=== PATIENT | male | born 1970 | race Caucasian/White ===

== ENCOUNTER 2021-10-26 14:12 | Inpatient (IN) | payer BC, SELFPAY ==
[2021-10-26] VITALS (17 sets, daily range): BP systolic 114–149; BP diastolic 75–95; PULSE 55–76; RESP 16; TEMP 36.2–36.8; O2SAT 95–99; BMI 22.2; BMI 22.7
--- NOTE | 2021-10-26 14:25 | ED_ITS ---
HPI - Extremity Injury (Lower) General Time Seen by Provider: 14:35 Date Seen: 10/26/21 Chief Complaint: Extremity Pain/Injury, Lower Stated Complaint: Fall w/hip pain Time Seen by Provider: 10/26/21 14:13 Source: patient and family Mode of arrival: wheelchair Limitations: no limitations History of Present Illness HPI Narrative: Pleasant 51-year-old gentleman was at home where he fell off of chair, onto his right hip. He fell onto concrete. He is having pain in his right hip and right groin since this occurs. Trouble bearing weight on his right leg. And had to take wheelchair into the emergency room. They were able to drive him by private vehicle to the emergency department. Denies any back pain, denies any neck pain, there is no loss of conscious, or other injury he says. Denies any numbness tingling or weakness into his right lower extremity. Pre-existing problems with hip or back issues. Took some Tylenol at home, and unknown amount. MD complaint: hip injury Onset (ago): hour(s) (1) Injury: Right: hip and pelvis Type of Injury: blunt Place: home Severity: moderate Relieving factors: immobilization Exacerbating factors: weight bearing and movement Context: fall Associated symptoms: able to partially bear weight Other symptoms: none Treatments prior to arrival: other Related Data Home Medications Medication Instructions Recorded Confirmed No Known Home Medications 10/26/21 10/26/21 Allergies Allergy/AdvReac Type Severity Reaction Status Date / Time No Known Drug Allergies Allergy Verified 10/26/21 14:20 Review of Systems Status of ROS: Reports: 6 or more systems reviewed and unremarkable except as noted in History and below [facility] Social History Smoking Status: Current every day smoker What tobacco products do you use: cigarettes Do you use any of these nicotine containing products: None Second hand tobacco smoke exposure: No How often do you have a drink containing alcohol: 4 or more times a week How often do you have six or more drinks on one occasion: Less than monthly AUDIT-C Alcohol total score: 5 Non-prescribed substance use: denies use service: No Exam Const: Vital Signs, click to edit/add: Vital Signs - 24 hr 10/26/21 14:21 Temperature 97.1 F L Pulse Rate [Pulse Oximeter] 71 Respiratory Rate 16 Blood Pressure [Ri ght Upper Arm] 149/90 H Pulse Oximetry 98 Oxygen Delivery Me thod Room Air Documenting provider has reviewed patient's vital signs: yes Common normals: no apparent distress, average body habitus, oriented x3, no limitations, healthy appearing, alert and well nourished General appearance: cooperative and comfortable Orientation/consciousness: Yes awake Other: Laying actually sitting in rney in room 5, absolutely no pain, symmetrical legs bilaterally with no rotational deformity. HENMT: Common normals: normocephalic, head/scalp atraumatic, hearing grossly normal bilaterally, external ears normal, EAC's normal, TM's normal bilaterally, external nose normal, nasal mucous membranes and turbinates normal, moist oral mucous membranes, oropharynx normal, dentition normal and gingiva normal Head and scalp: normocephalic and atraumatic Nose: external nose normal and nasal mucous membranes and turbinates normal External ear: external ears normal External auditory canal: EAC's normal Tympanic membrane: TM's normal bilaterally Eye: Common normals: PERRL, EOMs intact bilaterally, conjunctivae normal and no scleral icterus Conjunctiva: conjunctiva(e) normal Pupil: PERRL Neck & C-Spine: Common normals: full ROM, no lymphadenopathy, supple, no meningeal signs and no JVD Resp: Common normals: normal respiratory effort, no retractions, no use of accessory muscles, clear to auscultation bilaterally and percussion normal Auscultation: clear to auscultation bilaterally Percussion: percussion normal Cardio: Common normals: no JVD, regular rate, regular rhythm, S1 normal heart sound, S2 normal heart sound, no gallops, no clicks, no murmurs, no rub and peripheral pulses 2+ throughout Rate: regular rate Rhythm: regular rhythm Heart sounds: S1 normal and S2 normal Peripheral pulses: pulses 2+ throughout GI: Common normals: Normal to inspection, nondistended, normoactive bowel sounds present, soft to palpation, non-tender, no hepatosplenomegaly, no masses and no bruits Palpation: soft and no hepatosplenomegaly : Common normals: no CVA tenderness, external exam normal, testes normal, scrotum normal, no scrotal swelling and no hernias present Bladder/kidney exam: no CVA tenderness Back & Pelvis: Common normals: no CVA tenderness, thoracic and lumbar spine normal to inspection, no thoracic nor lumbar tenderness and thoraco-lumbar ROM normal Other: Right lower extremity however with hip flexion reproduces his discomfort into his right groin. And right hip. Normal pulses in the right lower extremity, no edema, normal muscle bulk, Extremity: Other: Scrape over the right elbow of note, but full range of motion of his right elbow in extension, flexion, supination pronation. Good case consultant strength of his right hand noted also. Neuro: Common normals: oriented x3, CN's II-XII intact bilaterally, moves all extremities, no focal motor deficits, no sensory deficits noted, deep tendon reflexes 2+ bilaterally and gait normal Sensorium/orientation: awake and alert Meningeal signs: no meningeal signs Course Reevaluation(s) Reevaluation #1: I discussed with the patient he has a right hip fracture, and will need surgery. I spoke to the hospitalist, Dr. Sifuentes who accepted the patient, for admission, I then spoke to the orthopedic physician executive assistant to president on-call Sho on- call for , we will admit the patient to hospital for further care. Dilaudid will be added for pain control. He really does not have any pain at all, at rest, for non moving him, I do not think at the present time he needs fa scia iliaca block. Vital Signs Vital signs: Initial Vital Signs Temperature 97.1 F L 10/26/21 14:21 Temperature Source Temporal Artery Scan 10/26/21 14:21 Pulse Rate 71 10/26/21 14:21 Respiratory Rate 16 10/26/21 14:21 Blood Pressure 149/90 H 10/26/21 14:21 Blood Pressure Mean 109 10/26/21 14:21 Blood Pressure Position Sitting 10/26/21 14:21 Pulse Oximetry 98 10/26/21 14:21 Oxygen Delivery Method 10/26/21 14:21 Vital Signs Temperature 97.1 F L 10/26/21 14:21 Pulse Rate 71 10/26/21 14:21 Respiratory Rate 16 10/26/21 14:21 Blood Pressure 149/90 H 10/26/21 14:21 Pulse Oximetry 98 10/26/21 14:21 Oxygen Delivery Method 10/26/21 14:21 Temperature 97.1 F L 10/26/21 14:21 Pulse Rate 71 10/26/21 14:21 Respiratory Rate 16 10/26/21 14:21 Blood Pressure 149/90 H 10/26/21 14:21 Pulse Oximetry 98 10/26/21 14:21 Oxygen Delivery Method 10/26/21 14:21 MDM - Extremity Injury (Lower) MDM Narrative Medical decision making narrative: Patient is seen and assessed, consideration for right hip fracture, pelvic fracture, hernia, back injury within without fracture, sciatica, femur fracture. Differential Diagnosis Differential diagnosis: Likely fracture of femur and fracture of hip Medical Records Attestation: I reviewed the patient's medical records. Lab Data Attestation: I reviewed the patient's lab results. Imaging Data rhip: Attestation: I have reviewed the pertinent imaging results. My impression: Right hip intratrochanteric fracture, with no angulation or displacement. ECG Data Attestation: I personally reviewed and interpreted this ECG as follows: ECG interpretation date: 10/26/21 ECG interpretation time: 15:16 Prior ECG tracings: not available for review Interpretation: EKG normal sinus rhythm with a ventricular rate of 67 there is an incomplete right bundle-branch block with no acute ST wave changes otherwise normal EKG. Discharge Plan Discharge Clinical Impression: Contusion of elbow, right, Abrasion of elbow, right, Closed fracture of right hip Patient Disposition: Admitted As Inpatient Condition: Stable Prescriptions: No Action No Known Home Medications Follow Up/Referrals: Provider,Not a Local [Primary Care Provider] -
--- NOTE | 2021-10-26 14:34 | CRLHL7_ITS ---
For Patients: As a result of the Cures Act, medical imaging exams and procedure reports are released immediately into your electronic medical record. You may view this report before your referring provider. If you have questions, please contact your health care provider. Indication: Fall Technique: AP pelvis and right hip views Comparison: No comparison Findings: Nondisplaced right intertrochanteric fracture. No dislocation or additional fractures are seen. Dictated by Marli Blake MD @ 10/26/2021 3:15:42 PM (Electronically Signed)
[2021-10-26] MEDS: HYDROmorphone 0.5 mg/0.5 ml inj IVP ×4 (15:15→22:36)
--- NOTE | 2021-10-26 15:15 | ED.NURSE ---
No pain if resting still, pain while in imaging for scans 12/09. Dilaudid per order - see eMAR.
[2021-10-26 15:39] LABS: Basophils Percent Auto 0.2 % (0.0-3.0); Eosinophils Percent Auto 0.2 % (0.0-7.0); Hematocrit 48.2 % (37.0-53.0); Hemoglobin* 15.7 gm/dL (13.5-17.5); Immature Granulocytes Abs Auto 0.11 K/uL (0.00-0.30); Lymphocytes Percent Auto 13.5 % (20-44); Mean Corpuscular HGB Conc 33 gm/dL (32-36); Mean Corpuscular Hemoglobin 29 pg (26-34); Mean Corpuscular Volume 88 fL (80-100); Monocytes Percent Auto 6.6 % (0.0-11.0); Neutrophils Percent Auto 78.7 % (42.0-72.0); Platelet Count* 205 K/uL (140-440); White Blood Count* 14.64 K/uL (4.50-11.00)
[2021-10-26 15:59] LABS: Slide Review Reflex No
--- NOTE | 2021-10-26 16:00 | ED.NURSE ---
Abrasion to right elbow cleansed by EDT with hibiclens solution, dressed with bacitracin and bandaid.
[2021-10-26 16:01] LABS: Chloride* 105 mmol/L (96-114); Potassium* 4.3 mmol/L (3.6-5.1); Sodium* 137 mmol/L (135-149)
[2021-10-26 16:04] LABS: Blood Urea Nitrogen* 15 mg/dL (7-30); Carbon Dioxide* 28 mmol/L (20-32); Creatinine* 0.9 mg/dL (0.5-1.5); Est. Creatinine Clearance* 104.66; Estimated Glomerular Filt Rate 103 ml/min
[2021-10-26 16:05] LABS: Glucose* 106 mg/dL (60-115)
[2021-10-26 16:07] LABS: PCR FLU A Negative PCR FLU A (Negative); PCR FLU B Negative PCR FLU B (Negative); PCR RSV Negative PCR RSV (Negative)
[2021-10-26 16:10] LABS: Ethanol* < 0.01 % (0.01-0.03); SARS PCR* Negative SARS-CoV-2 (Negative)
[2021-10-26 16:31] LABS: INR 1.22 (0.91-1.10); Partial Thromboplastin Time* 30 Seconds (23-33); Prothrombin Time 15.8 Seconds
[2021-10-26] MEDS: KETOROLAC 30 MG/ML inj IVP (17:09)
--- NOTE | 2021-10-26 17:47 | P.IMHP_ITS ---
Hospitalist- H&P: HPI History of Present Illness Date Seen: 10/26/21 Chief complaint: Fall w/hip pain Narrative: ADMISSION HISTORY AND PHYSICAL - HOSPITALIST Chief Complaint: Fall, right hip pain HPI: 51-year-old with a history of tobacco dependence but otherwise no significant medical history presents after a fall at home. Patient states that about noon today he was climbing on a stool in his garage and inadvertently fell on his right hip on the concrete floor. He did not hit his head. He did not lose consciousness. He scraped his right elbow as well. Was not able to stand without assistance. He did limp once his significant other helped him up. She went got crutches and he was able to move into the house. She brought him into the emergency room for further evaluation. He was not currently drinking or using any drugs. In the ED a nondisplaced right intertrochanteric fracture was noted. No dislocation or additional fractures are seen. His preop clearance was begun. Ortho accepted consultation and is planning an ORIF in the morning. Hospitalist service was contacted to admit. 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 No dislocation or additional fractures are seen. EKG Normal sinus, incomplete right bundle branch block, rate 67 REVIEW OF SYSTEMS: 12-point ROS completed with patient and negative unless otherwise stated in HPI or below. PHYSICAL EXAM: CODE STATUS: FULL CODE CONSTITUTIONAL: Conversive, good historian. A/O. Knows setting and context. VITAL SIGNS: see record. HEENT: Normocephalic, atraumatic. PERRL, EOMI, conjunctivae pink, no scleral icterus. Ears and nose externally normal. Pharynx normal. NECK: No JVD. No carotid bruit, no thyromegaly, no adenopathy. CHEST: Clear to auscultation bilaterally HEART: S1 and S2 normal. No harsh murmurs. Edema MUSCULOSKELETAL: Right lower extremity No obvious shortening or rotation. Good distal pulses. NEURO: Cranial nerves intact. Grossly intact. No asymmetric findings. SKIN: No rashes, petechiae, concerning changes PSYCHIATRIC: Euthymic. ADMIT DVT: SCDs to the left GI: PO intake Time spent: 70 minutes examining patient, conferring with family and patient, care staff, developing care plan [facility] Medical History (Updated 10/26/21 @ 18:12 by Samara Sifuentes MD) Tobacco dependence Surgical History (Updated 10/26/21 @ 18:12 by Samara Sifuentes MD) H/O toe surgery Social History Highest level of school completed/degree received: some college, no degree Smoking Status: Current every day smoker What tobacco products do you use: cigarettes Smoking packs per day: 0.5 Smoking cigarettes per day: 10.0 Years smoked: 40 Smoking pack-years: 20.00 Do you use any of these nicotine containing products: None Second hand tobacco smoke exposure: No How often do you have a drink containing alcohol: 4 or more times a week Alcohol type: beer and hard liquor 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 How many standard drinks containing alcohol do you have on a typical day: 3 or 4 How often do you have six or more drinks on one occasion: Less than monthly AUDIT-C Alcohol total score: 6 Non-prescribed substance use: denies use Caffeine: Yes (2 cups/day) service: No Meds Home Medications and Allergies Home Medications Medication Instructions Recorded Confirmed Type No Known Home Medications 10/26/21 10/26/21 History Allergies Allergy/AdvReac Type Severity Reaction Status Date / Time No Known Drug Allergies Allergy Verified 10/26/21 14:20 Exam Const: Vital Signs, click to edit/add: Vital Signs - 24 hr 10/26/21 14:21 10/26/21 15:00 10/26/21 14:22 Temperature 97.1 F L Pulse Rate 69 Pulse Rate [Pulse Oximeter] 71 Pulse Rate [Right] 71 Respiratory Rate 16 Blood Pressure 149/90 H Blood Pressure [Ri ght Arm] Blood Pressure [Ri ght Upper Arm] 149/90 H Pulse Oximetry 98 97 Oxygen Delivery Me thod Room Air 10/26/21 14:23 10/26/21 14:32 10/26/21 14:33 Temperature Pulse Rate 70 75 67 Pulse Rate [Pulse Oximeter] Pulse Rate [Right] Respiratory Rate Blood Pressure 120/88 Blood Pressure [Ri ght Arm] Blood Pressure [Ri ght Upper Arm] Pulse Oximetry 99 99 98 Oxygen Delivery Me thod 10/26/21 15:17 10/26/21 15:18 10/26/21 15:30 Temperature Pulse Rate 76 69 65 Pulse Rate [Pulse Oximeter] Pulse Rate [Right] Respiratory Rate Blood Pressure 122/81 Blood Pressure [Ri ght Arm] Blood Pressure [Ri ght Upper Arm] Pulse Oximetry 96 97 96 Oxygen Delivery Me thod 10/26/21 15:32 10/26/21 16:00 10/26/21 16:02 Temperature Pulse Rate 68 68 63 Pulse Rate [Pulse Oximeter] Pulse Rate [Right] Respiratory Rate Blood Pressure 114/75 124/82 Blood Pressure [Ri ght Arm] Blood Pressure [Ri ght Upper Arm] Pulse Oximetry 95 97 95 Oxygen Delivery Me thod 10/26/21 16:34 Temperature 98.2 F Pulse Rate Pulse Rate [Pulse Oximeter] Pulse Rate [Right] 65 Respiratory Rate 16 Blood Pressure Blood Pressure [Ri ght Arm] 142/93 H Blood Pressure [Ri ght Upper Arm] Pulse Oximetry 97 Oxygen Delivery Me thod Room Air Hospitalist - H&P: Result Labs Labs: Short CBC 10/26/21 Range/Units 15:15 WBC 14.64 H (4.50-11.00) K/uL Hgb 15.7 (13.5-17.5) gm/dL Hct 48.2 (37.0-53.0) % Plt Count 205 (140-440) K/uL BMP 10/26/21 15:15 Sodium 137 Potassium 4.3 Chloride 105 Carbon Dioxide 28 BUN 15 Creatinine 0.9 Glucose 106 Calcium 9.0 Assessment and Plan Assessment and plan (1) Closed fracture of right hip: Status: Acute Assessment and Plan: EKG shows incomplete right bundle branch block. Chest x-ray pending. Labs reviewed. My only concern, but this will not hold up surgery is his elevated INR at 1.22. See below. Plan for for ORIF in the morning. NPO after midnight. Pain management. Follow INR and anticoagulate after surgery (2) Abrasion of elbow, right: Status: Acute Assessment and Plan: Dressed in the ED (3) Tobacco dependence: Status: Acute Assessment and Plan: Patient declines nicotine replacement (4) Elevated INR: Status: Acute Assessment and Plan: 1.22. No history of aspirin or other anticoagulant use. Patient is a social drinker. I am checking LFTs, GGT and repeating an INR later tonight. Less than 1.3 okay for surgery.
--- NOTE | 2021-10-26 18:12 | CRLHL7_ITS ---
For Patients: As a result of the Cures Act, medical imaging exams and procedure reports are released immediately into your electronic medical record. You may view this report before your referring provider. If you have questions, please contact your health care provider. INDICATION: Trauma, hip fracture. TECHNIQUE: Single AP view COMPARISON: None available FINDINGS: The cardiomediastinal contours are within normal limits. No suspicious focal or diffuse pulmonary opacities. No definite pneumothorax or pleural effusion. No aggressive appearing osseous lesion. IMPRESSION: No acute pulmonary process. Dictated by Luis Marx MD @ 10/26/2021 6:58:33 PM (Electronically Signed)
[2021-10-26 18:35] LABS: Albumin* 3.9 g/dL (3.3-5.0)
[2021-10-26 18:38] LABS: Alanine Aminotransferase* 16 U/L (4-50); Alkaline Phosphatase* 50 U/L (40-150); Aspartate Amino Transferase* 16 U/L (12-35); Bilirubin Direct* 0.3 mg/dL (0.0-0.5); Bilirubin Total* 0.6 mg/dL (0.1-1.5); Gamma Glutamyl Transpeptidase* 22 U/L (8-55)
[2021-10-26] MEDS: OXYCODONE 5 MG TABLET PO (20:03)
[2021-10-26] MEDS: ACETAMINOPHEN 325 MG TABLET PO (20:04)
--- NOTE | 2021-10-26 20:04 | PC.NURSE ---
pt up to m/s floor at 1619 with fx R hip from fall off stool. Bedrest. Surgery tomorrow. NPO at midnight. Tolerated regular diet this evening. Dilaudid and toradol for pain. A/Ox3. Pleasant and cooperative.
[2021-10-26 20:22] LABS: Prothrombin Time 15.6 Seconds
[2021-10-27] VITALS (25 sets, daily range): BP systolic 93–142; BP diastolic 61–97; PULSE 48–75; RESP 12–16; TEMP 35.7–36.8; O2SAT 93–100
[2021-10-27] MEDS: OXYCODONE 5 MG TABLET PO ×4 (02:04→23:21)
[2021-10-27] MEDS: ACETAMINOPHEN 325 MG TABLET PO (02:05)
[2021-10-27] MEDS: HYDROmorphone 0.5 mg/0.5 ml inj IVP ×4 (02:21→19:07)
--- NOTE | 2021-10-27 05:47 | PC.NURSE ---
[id number] Pt resting comfortably in bed, 0/10 pain when not moving, 10/10 pain with any slight movement, prn pain medications given with some relief. NPO since midnight, no iv fluids started, called Levon requesting fluids and no new orders given since surgery was scheduled for 0700. pedal pulses present, declined ice to site. denies N/V.
[2021-10-27 06:25] LABS: INR 1.23 (0.91-1.10)
[2021-10-27] MEDS: LACTATED RINGERS 1000 ML IV (06:53)
--- NOTE | 2021-10-27 07:00 | CRLHL7_ITS ---
For Patients: As a result of the Century Cures Act, medical imaging exams and procedure reports are released immediately into your electronic medical record. You may view this report before your referring provider. If you have questions, please contact your health care provider. INDICATION: Surgical intervention. TECHNIQUE: Fluoroscopic support provided for surgical intervention; 56 seconds of fluoroscopy time utilized with 2 images archived. IMPRESSION: Fluoroscopic support for right femoral intramedullary nail fixation. Please see procedural note for further details. Dictated by Giuseppe Blunt MD @ 10/28/2021 7:22:31 AM (Electronically Signed)
--- NOTE | 2021-10-27 07:02 | P.ORCN_ITS ---
History of Present Illness HPI Date Seen: 10/27/21 Requesting physician: Samara Sifuentes Chief complaint: Fall w/hip pain Narrative: Carlos is a 51-year-old, community ambulator who fell approximately 4 ft landing on a concrete floor, onto his right hip. He had immediate hip pain and was unable to bear weight. He was diagnosed by Dr. Lobo with an intertrochanteric fracture. He has been medically cleared for surgery. He has never injured this hip or had surgery previously. He does not have diabetes, he smokes 1/2 pack of cigarettes per day, he is not on blood thinners. The patient denies: Fever, night sweats, shaking chills, nausea, vomiting, diar noemy, chest pain, chest pressure, shortness of breath, no rash, no change in hearing or vision, no issues with bleeding or clotting [facility] Medical History Tobacco dependence Surgical History H/O toe surgery Social History Highest level of school completed/degree received: some college, no degree Smoking Status: Current every day smoker What tobacco products do you use: cigarettes Smoking packs per day: 0.5 Smoking cigarettes per day: 10.0 Years smoked: 40 Smoking pack-years: 20.00 Do you use any of these nicotine containing products: None Second hand tobacco smoke exposure: No How often do you have a drink containing alcohol: 4 or more times a week Alcohol type: beer and hard liquor 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 How many standard drinks containing alcohol do you have on a typical day: 3 or 4 How often do you have six or more drinks on one occasion: Less than monthly AUDIT-C Alcohol total score: 6 Non-prescribed substance use: denies use Caffeine: Yes (2 cups/day) service: No Meds Home Medications and Allergies Home Medications Medication Instructions Recorded Confirmed Type No Known Home Medications 10/26/21 10/26/21 History Allergies Allergy/AdvReac Type Severity Reaction Status Date / Time No Known Drug Allergies Allergy Verified 10/26/21 14:20 Ortho Exam Narrative Exam Narrative: The patient is alert and oriented x3, in no acute distress, they are able to converse in a normal speaking voice without obvious hearing loss and with nonlabored breathing. The skin about the right hip is intact, without surgical scars, no ecchymosis. CMS to the foot is normal. Const Vital Signs, click to edit/add: Vital Signs - 24 hr 10/26/21 14:21 10/26/21 15:00 10/26/21 14:22 Temperature 97.1 F L Pulse Rate 69 Pulse Rate [Pulse Oximeter] 71 Pulse Rate [Right Pulse Oximeter] Pulse Rate [Right] 71 Respiratory Rate 16 Blood Pressure 149/90 H Blood Pressure [Right Arm] Blood Pressure [Right Upper Arm] 149/90 H Pulse Oximetry 98 97 Oxygen Delivery Method Room Air 10/26/21 14:23 10/26/21 14:32 10/26/21 14:33 Temperature Pulse Rate 70 75 67 Pulse Rate [Pulse Oximeter] Pulse Rate [Right Pulse Oximeter] Pulse Rate [Right] Respiratory Rate Blood Pressure 120/88 Blood Pressure [Right Arm] Blood Pressure [Right Upper Arm] Pulse Oximetry 99 99 98 Oxygen Delivery Method 10/26/21 15:17 10/26/21 15:18 10/26/21 15:30 Temperature Pulse Rate 76 69 65 Pulse Rate [Pulse Oximeter] Pulse Rate [Right Pulse Oximeter] Pulse Rate [Right] Respiratory Rate Blood Pressure 122/81 Blood Pressure [Right Arm] Blood Pressure [Right Upper Arm] Pulse Oximetry 96 97 96 Oxygen Delivery Method 10/26/21 15:32 10/26/21 16:00 10/26/21 16:02 Temperature Pulse Rate 68 68 63 Pulse Rate [Pulse Oximeter] Pulse Rate [Right Pulse Oximeter] Pulse Rate [Right] Respiratory Rate Blood Pressure 114/75 124/82 Blood Pressure [Right Arm] Blood Pressure [Right Upper Arm] Pulse Oximetry 95 97 95 Oxygen Delivery Method 10/26/21 16:34 10/26/21 17:55 10/26/21 20:05 Temperature 98.2 F 98.3 F Pulse Rate 63 Pulse Rate [Pulse Oximeter] Pulse Rate [Right Pulse Oximeter] 67 Pulse Rate [Right] 65 Respiratory Rate 16 16 Blood Pressure Blood Pressure [Right Arm] 142/93 H 146/90 H Blood Pressure [Right Upper Arm] Pulse Oximetry 97 98 Oxygen Delivery Method Room Air Room Air 10/26/21 23:00 10/26/21 23:00 10/26/21 23:10 Temperature 97.8 F Pulse Rate 58 L Pulse Rate [Pulse Oximeter] Pulse Rate [Right Pulse Oximeter] 55 L Pulse Rate [Right] Respiratory Rate 16 16 Blood Pressure Blood Pressure [Right Arm] 132/95 H Blood Pressure [Right Upper Arm] Pulse Oximetry 97 Oxygen Delivery Method Room Air 10/27/21 03:14 10/27/21 06:38 10/27/21 06:40 Temperature 97.8 F Pulse Rate 60 63 Pulse Rate [Pulse Oximeter] Pulse Rate [Right Pulse Oximeter] 67 Pulse Rate [Right] Respiratory Rate 12 12 12 Blood Pressure 126/85 140/94 H Blood Pressure [Right Arm] 119/76 Blood Pressure [Right Upper Arm] Pulse Oximetry 97 95 95 Oxygen Delivery Method Room Air Room Air Room Air 10/27/21 06:50 Temperature Pulse Rate 75 Pulse Rate [Pulse Oximeter] Pulse Rate [Right Pulse Oximeter] Pulse Rate [Right] Respiratory Rate 12 Blood Pressure 123/93 H Blood Pressure [Right Arm] Blood Pressure [Right Upper Arm] Pulse Oximetry 96 Oxygen Delivery Method Room Air Results Labs Labs: Laboratory Results - last 48 hr 10/26/21 10/26/21 10/26/21 15:15 15:15 15:15 WBC 14.64 H RBC 5.50 Hgb 15.7 Hct 48.2 MCV 88 MCH 29 MCHC 33 RDW Coeff of Shaw 13.0 Plt Count 205 Neut % (Auto) 78.7 H Lymph % (Auto) 13.5 L [place] % (Auto) 6.6 Eos % (Auto) 0.2 Baso % (Auto) 0.2 Neut # (Auto) 11.50 H Lymph # (Auto) 2.00 [place] # (Auto) 1.00 H Eos # (Auto) 0.00 Baso # (Auto) 0.00 Abs Immat Gran (auto) 0.11 INR 1.22 H APTT 30 Sodium 137 Potassium 4.3 Chloride 105 Carbon Dioxide 28 BUN 15 Creatinine 0.9 Estimated Creat Clear 104.66 Estimated GFR 103 Glucose 106 Calcium 9.0 Total Bilirubin 0.6 Direct Bilirubin 0.3 GGT 22 AST 16 ALT 16 Alkaline Phosphatase 50 Total Protein 7.0 Albumin 3.9 Ethyl Alcohol < 0.01 L SARS-CoV-2 (PCR) Influenza Type A (PCR) Influenza Type B (PCR) RSV (PCR) 10/26/21 10/26/21 10/27/21 15:15 19:47 05:58 WBC RBC Hgb Hct MCV MCH MCHC RDW Coeff of Shaw Plt Count Neut % (Auto) Lymph % (Auto) [place] % (Auto) Eos % (Auto) Baso % (Auto) Neut # (Auto) Lymph # (Auto) [place] # (Auto) Eos # (Auto) Baso # (Auto) Abs Immat Gran (auto) INR 1.20 H 1.23 H APTT Sodium Potassium Chloride Carbon Dioxide BUN Creatinine Estimated Creat Clear Estimated GFR Glucose Calcium Total Bilirubin Direct Bilirubin GGT AST ALT Alkaline Phosphatase Total Protein Albumin Ethyl Alcohol SARS-CoV-2 (PCR) Negative SARS-CoV-2 Influenza Type A (PCR) Negative PCR FLU A Influenza Type B (PCR) Negative PCR FLU B RSV (PCR) Negative PCR RSV Diagnostic results Additional Comments: An AP pelvis, AP and cross-table lateral view of the right hip show a nondisplaced, 2 part intertrochanteric fracture. There is no pre-existing hip joint arthritis. There is no obvious pathologic lesion. Assessment and Plan Assessment and plan (1) Closed fracture of right hip: Status: Acute Total time spent: Total time spent is greater than 50% in coordination of care (as documented) at patient's floor/unit and/or counseling patient: (2) Abrasion of elbow, right: Status: Acute Total time spent: Total time spent is greater than 50% in coordination of care (as documented) at patient's floor/unit and/or counseling patient: (3) Tobacco dependence: Status: Acute Total time spent: Total time spent is greater than 50% in coordination of care (as documented) at patient's floor/unit and/or counseling patient: (4) Elevated INR: Status: Acute Total time spent: Total time spent is greater than 50% in coordination of care (as documented) at patient's floor/unit and/or counseling patient: Plan Right lower extremity Nondisplaced 2 part intertrochanteric fracture I told Carlos that his injury is best treated with an intramedullary nail. He has been medically cleared for surgery, therefore we will plan to take him to the operating room now.
[2021-10-27] MEDS: CEFAZOLIN 2 GM in 0.9 % SODIUM CHLORIDE Mini-bag 100 ML IVPB ×3 (07:10→21:49)
--- NOTE | 2021-10-27 07:26 | P.NB_ITS ---
Nerve Block Nerve Block Time Seen by Provider: 06:42 Date Seen: 10/27/21 Type of block requested by surgeon for post-operative analgesia: PRASANTH/LFCN Side: right Time out performed: Yes Verification of patient name: Yes Verification of date of : Yes Site marking: site marked Name of person performing procedure: Pramod Earl CRNA Continuous monitoring Was continuous monitoring of O2 sat, B/P, residential assistant, recorded every 15 minutes?: Yes Procedure Checklist: sterile prep, needles and gloves Ultrasound guided. Images saved: Yes Medications given in 5ml increments after negative aspiration: Ropivicaine Decadron (mg): 10 Precedex (mcg): 25 Patient tolerated procedure well: Yes Block Charges Block Charge (with Pro Fee): Other Periph Nerve Block Use of Ultrasound Machine for Block: Yes- US Guidance/pain block
--- NOTE | 2021-10-27 07:37 | SUR.OPER ---
TIME OUT PERFORMED PRIOR TO PRASANTH BLOCK ON THE RIGHT HIP AT 06:45. PATIENT QUESTIONS ANSWERED SATISFACTORILY PREOPERATIVELY.? PATIENT BROUGHT TO OR #2 PER MED/SURG BED.? Patient positioned supine on OR #2 bed.?The perioperative?team supported arms bilaterally on arm boards.? Final approval of positioning by surgeon.?
--- NOTE | 2021-10-27 08:07 | P.ORPRC_ITS ---
Procedure Note Date of procedure: 10/27/21 Procedure: SURGEON: Tom Styles MD PROCESS CONTROLS TECHNICIAN: Emily Conte PA-C PREOPERATIVE DIAGNOSIS: Right hip 2 part intertrochanteric fracture POSTOPERATIVE DIAGNOSIS: Right hip 2 part intertrochanteric fracture NAME OF OPERATION: Right hip fracture ORIF IMPLANTS: Synthes intramedullary hip screw 11 mm x 170 mm with a 110 mm lag screw and a 36 mm distal interlocking screw ANESTHESIA: Spinal ESTIMATED BLOOD LOSS: 10 mL COMPLICATIONS: None SPECIMENS: None DRAINS: None PREOPERATIVE ANTIBIOTICS: Ancef 2 gram INDICATIONS: The patient is a 51-year-old male who fell yesterday sustaining a to part intertrochanteric fracture of the right hip. They were admitted for workup and care. They have been medically cleared for surgery. The risks, benefits and expected outcomes were discussed in detail. These included but were not limited to: Infection, bleeding, injury to blood vessel or nerve, venous thromboembolism. All questions were answered to their satisfaction. Use of an child care assistant was necessary for patient positioning and safety, soft t issue retraction and closure, dressing application, and transfer of the patient to and from the hospital bed to the fracture table. PROCEDURE: Spinal anesthesia was administered. The patient was placed supine on the fracture table. The right lower extremity was prepped and draped in the usual sterile fashion. The limb was placed in longitudinal traction. Our provisional reduction was confirmed with the C-arm. The guide pin was placed percutaneously to the tip of the greater trochanter. It was advanced into the canal. Its placement was confirmed with the image intensifier in both AP and lateral views. We then made a stab incision around the guide pin. The soft tissue sleeve was advanced to the tip of the trochanter. The opening Reamer was used. We made an incision over the flare of the greater trochanter. Dissection was carried with the Christian elevator to the lateral cortex. A bone hook was placed over the calcar to obtain an anatomic reduction. The intramedullary nail was placed. We held the fracture reduced with the bone hook and the guide pin was taken to the subchondral bone of the femoral head on both the AP and lateral views. It was placed in the posterior, inferior aspect of the head. The drill and the tap were used. We placed the 110 mm lag screw. We removed the bone hook. Our reduction remains anatomic. Traction was released. The lag screw was set to dynamic mode. That is it was not locked. We placed a 36 mm distal interlocking screw. This construct was imaged in the AP and lateral views and was felt to be well placed with an anatomic reduction. The wounds were irrigated with normal saline. They were closed with Vicryl deep and Monocryl in the skin. A dry dressing was applied. Sponge and needle counts were correct x2. The patient tolerated the procedure well. There were no apparent complications. They were carefully transferred to the hospital bed and taken to the postanesthesia care unit in satisfactory condition. PLAN: The patient will be mobilized with physical therapy. They may weightbear as tolerates on the right lower extremity. Aspirin will be used for DVT prophylaxis. They will be discharged to a skilled nursing once medically appropriate.
[2021-10-27] MEDS: LACTATED RINGERS 1000 ML 1,000 ML 75 ML IV ×2 (08:30→10:36)
--- NOTE | 2021-10-27 08:36 | W.ANESCHARGE ---
Anesthesia Charges Start Date/Time Anesthesia Start Date: 10/27/21 Anesthesia Start Time: 06:53 Stop Date/Time Anesthesia Stop Date: 10/27/21 Anesthesia Stop Time: 09:00 Summary Emergency: Yes
--- NOTE | 2021-10-27 10:30 | PM.IMPN1 ---
Progress Note: A&P Assessment and plan (1) Closed fracture of right hip: Status: Acute (2) Abrasion of elbow, right: Status: Acute (3) Tobacco dependence: Status: Acute Plan Plan 1. S/p Right ORIF on 10/27 under spinal anesthesia, EBL 10cc -pain control, diet, dvt ppx per surgery service -Therapy evaluation -bmp and hemoglobin in AM 2. hx of tobacco use disorder; cessation counseling prior to DC 3. Hx of alcohol dependence; monitor for s/s of withdrawal Time Spent With Patient Total time spent: 20 Subjective Date Seen: 10/27/21 Interval history: Patient is doing well following surgery He denies chest pain and sob denies nausea and vomiting post operative pain is controlled Exam Narrative: Exam Narrative: Gen: no acute distress HEENT: NCAT EOMI MMM CV: RRR normal s1 s2 Lungs: CTAB Abd: Soft, nt, nd Neuro: AOX3 moves extremities Const: Vital Signs, click to edit/add: Vital Signs - 24 hr 10/26/21 14:21 10/26/21 15:00 10/26/21 14:22 Temperature 97.1 F L Pulse Rate 69 Pulse Rate [Pulse Oximeter] 71 Pulse Rate [Right Dorsalis Pedis] Pulse Rate [Right Pulse Oximeter] Pulse Rate [Right] 71 Respiratory Rate 16 Blood Pressure 149/90 H Blood Pressure [Ri ght Arm] Blood Pressure [Ri ght Upper Arm] 149/90 H Pulse Oximetry 98 97 Oxygen Delivery Me thod Room Air Oxygen Flow Rate 10/26/21 14:23 10/26/21 14:32 10/26/21 14:33 Temperature Pulse Rate 70 75 67 Pulse Rate [Pulse Oximeter] Pulse Rate [Right Dorsalis Pedis] Pulse Rate [Right Pulse Oximeter] Pulse Rate [Right] Respiratory Rate Blood Pressure 120/88 Blood Pressure [Ri ght Arm] Blood Pressure [Ri ght Upper Arm] Pulse Oximetry 99 99 98 Oxygen Delivery Me thod Oxygen Flow Rate 10/26/21 15:17 10/26/21 15:18 10/26/21 15:30 Temperature Pulse Rate 76 69 65 Pulse Rate [Pulse Oximeter] Pulse Rate [Right Dorsalis Pedis] Pulse Rate [Right Pulse Oximeter] Pulse Rate [Right] Respiratory Rate Blood Pressure 122/81 Blood Pressure [Ri ght Arm] Blood Pressure [Ri ght Upper Arm] Pulse Oximetry 96 97 96 Oxygen Delivery Me thod Oxygen Flow Rate 10/26/21 15:32 10/26/21 16:00 10/26/21 16:02 Temperature Pulse Rate 68 68 63 Pulse Rate [Pulse Oximeter] Pulse Rate [Right Dorsalis Pedis] Pulse Rate [Right Pulse Oximeter] Pulse Rate [Right] Respiratory Rate Blood Pressure 114/75 124/82 Blood Pressure [Ri ght Arm] Blood Pressure [Ri ght Upper Arm] Pulse Oximetry 95 97 95 Oxygen Delivery Me thod Oxygen Flow Rate 10/26/21 16:34 10/26/21 17:55 10/26/21 20:05 Temperature 98.2 F 98.3 F Pulse Rate 63 Pulse Rate [Pulse Oximeter] Pulse Rate [Right Dorsalis Pedis] Pulse Rate [Right Pulse Oximeter] 67 Pulse Rate [Right] 65 Respiratory Rate 16 16 Blood Pressure Blood Pressure [Ri ght Arm] 142/93 H 146/90 H Blood Pressure [Ri ght Upper Arm] Pulse Oximetry 97 98 Oxygen Delivery Me thod Room Air Room Air Oxygen Flow Rate 10/26/21 23:00 10/26/21 23:00 10/26/21 23:10 Temperature 97.8 F Pulse Rate 58 L Pulse Rate [Pulse Oximeter] Pulse Rate [Right Dorsalis Pedis] Pulse Rate [Right Pulse Oximeter] 55 L Pulse Rate [Right] Respiratory Rate 16 16 Blood Pressure Blood Pressure [Ri ght Arm] 132/95 H Blood Pressure [Ri ght Upper Arm] Pulse Oximetry 97 Oxygen Delivery Me thod Room Air Oxygen Flow Rate 10/27/21 03:14 10/27/21 06:38 10/27/21 06:40 Temperature 97.8 F Pulse Rate 60 63 Pulse Rate [Pulse Oximeter] Pulse Rate [Right Dorsalis Pedis] Pulse Rate [Right Pulse Oximeter] 67 Pulse Rate [Right] Respiratory Rate 12 12 12 Blood Pressure 126/85 140/94 H Blood Pressure [Ri ght Arm] 119/76 Blood Pressure [Ri ght Upper Arm] Pulse Oximetry 97 95 95 Oxygen Delivery Me thod Room Air Room Air Room Air Oxygen Flow Rate 10/27/21 06:50 10/27/21 08:25 10/27/21 08:30 Temperature 97.8 F Pulse Rate 75 54 L 55 L Pulse Rate [Pulse Oximeter] Pulse Rate [Right Dorsalis Pedis] Pulse Rate [Right Pulse Oximeter] Pulse Rate [Right] Respiratory Rate 12 16 14 Blood Pressure 123/93 H 107/64 96/62 Blood Pressure [Ri ght Arm] Blood Pressure [Ri ght Upper Arm] Pulse Oximetry 96 95 98 Oxygen Delivery Me thod Room Air Room Air OxyMask Oxygen Flow Rate 10 10/27/21 08:35 10/27/21 08:40 10/27/21 08:45 Temperature 97.6 F 97.6 F Pulse Rate 49 L 52 L 53 L Pulse Rate [Pulse Oximeter] Pulse Rate [Right Dorsalis Pedis] Pulse Rate [Right Pulse Oximeter] Pulse Rate [Right] Respiratory Rate 12 12 12 Blood Pressure 98/62 93/61 99/67 Blood Pressure [Ri ght Arm] Blood Pressure [Ri ght Upper Arm] Pulse Oximetry 100 100 100 Oxygen Delivery Me thod OxyMask OxyMask OxyMask Oxygen Flow Rate 10 10 6 10/27/21 08:50 10/27/21 08:55 10/27/21 08:59 Temperature 97.5 F L Pulse Rate 49 L 48 L 49 L Pulse Rate [Pulse Oximeter] Pulse Rate [Right Dorsalis Pedis] Pulse Rate [Right Pulse Oximeter] Pulse Rate [Right] Respiratory Rate 12 12 12 Blood Pressure 102/67 106/71 106/67 Blood Pressure [Ri ght Arm] Blood Pressure [Ri ght Upper Arm] Pulse Oximetry 95 96 95 Oxygen Delivery Me thod Room Air Room Air Room Air Oxygen Flow Rate 10/27/21 09:05 10/27/21 09:15 10/27/21 09:30 Temperature 96.3 F L 96.3 F L 96.8 F L Pulse Rate 59 L Pulse Rate [Pulse Oximeter] Pulse Rate [Right Dorsalis Pedis] 60 Pulse Rate [Right Pulse Oximeter] 54 L Pulse Rate [Right] 65 65 Respiratory Rate 12 14 16 Blood Pressure Blood Pressure [Ri ght Arm] 112/77 116/80 117/81 Blood Pressure [Ri ght Upper Arm] Pulse Oximetry 93 93 Oxygen Delivery Me thod Room Air Room Air Room Air Oxygen Flow Rate 0 0 0 10/27/21 10:00 10/27/21 09:45 Temperature 96.8 F L 96.8 F L Pulse Rate Pulse Rate [Pulse Oximeter] Pulse Rate [Right Dorsalis Pedis] Pulse Rate [Right Pulse Oximeter] 54 L 54 L Pulse Rate [Right] Respiratory Rate 14 14 Blood Pressure Blood Pressure [Ri ght Arm] 114/80 120/74 Blood Pressure [Ri ght Upper Arm] Pulse Oximetry 97 93 Oxygen Delivery Me thod Room Air Room Air Oxygen Flow Rate 0 0 Labs Labs: Laboratory Results - last 24 hr 10/26/21 10/26/21 10/26/21 15:15 15:15 15:15 WBC 14.64 H RBC 5.50 Hgb 15.7 Hct 48.2 MCV 88 MCH 29 MCHC 33 RDW Coeff of Shaw 13.0 Plt Count 205 Neut % (Auto) 78.7 H Lymph % (Auto) 13.5 L [place] % (Auto) 6.6 Eos % (Auto) 0.2 Baso % (Auto) 0.2 Neut # (Auto) 11.50 H Lymph # (Auto) 2.00 [place] # (Auto) 1.00 H Eos # (Auto) 0.00 Baso # (Auto) 0.00 Abs Immat Gran (auto) 0.11 INR 1.22 H APTT 30 Sodium 137 Potassium 4.3 Chloride 105 Carbon Dioxide 28 BUN 15 Creatinine 0.9 Estimated Creat Clear 104.66 Estimated GFR 103 Glucose 106 Calcium 9.0 Total Bilirubin 0.6 Direct Bilirubin 0.3 GGT 22 AST 16 ALT 16 Alkaline Phosphatase 50 Total Protein 7.0 Albumin 3.9 Ethyl Alcohol < 0.01 L SARS-CoV-2 (PCR) Influenza Type A (PCR) Influenza Type B (PCR) RSV (PCR) 10/26/21 10/26/21 10/27/21 15:15 19:47 05:58 WBC RBC Hgb Hct MCV MCH MCHC RDW Coeff of Shaw Plt Count Neut % (Auto) Lymph % (Auto) [place] % (Auto) Eos % (Auto) Baso % (Auto) Neut # (Auto) Lymph # (Auto) [place] # (Auto) Eos # (Auto) Baso # (Auto) Abs Immat Gran (auto) INR 1.20 H 1.23 H APTT Sodium Potassium Chloride Carbon Dioxide BUN Creatinine Estimated Creat Clear Estimated GFR Glucose Calcium Total Bilirubin Direct Bilirubin GGT AST ALT Alkaline Phosphatase Total Protein Albumin Ethyl Alcohol SARS-CoV-2 (PCR) Negative SARS-CoV-2 Influenza Type A (PCR) Negative PCR FLU A Influenza Type B (PCR) Negative PCR FLU B RSV (PCR) Negative PCR RSV
[2021-10-27 11:04] LABS: Chloride* 107 mmol/L (96-114); Potassium* 3.8 mmol/L (3.6-5.1); Sodium* 138 mmol/L (135-149)
[2021-10-27 11:07] LABS: Blood Urea Nitrogen* 14 mg/dL (7-30); Carbon Dioxide* 28 mmol/L (20-32); Est. Creatinine Clearance* 99.24; Estimated Glomerular Filt Rate 91 ml/min
[2021-10-27 11:08] LABS: Calcium* 8.5 mg/dL (8.4-10.6); Glucose* 108 mg/dL (60-115)
[2021-10-27] MEDS: ACETAMINOPHEN 325 MG TABLET 650 MG PO ×2 (16:05→21:39)
--- NOTE | 2021-10-27 18:04 | PC.NURSE ---
Addendum entered by Yoel Duran RN 10/27/21 19:21: Pt refusing Ice packs to hip. Pt voiding clear yellow urine. Original Note: Patient up to m/s floor from PACU at 0905. Pain level 5-6/10 - managing with dilaudid, oxy, tyl. Afebrile. pt reports left calf cramps, verbalizes these occur frequently prior to hip fx. no redness/warmth/pain to site. education pt on s/s to monitor and report. TEDS on and Plexi's on while in bed. Up in chair this evening with Ax1, walker and GB. Tolerating regular diet. Pleasant and cooperative with cares. IS to 2500. BS active and LS CTA.
[2021-10-27] MEDS: ASPIRIN EC 325 MG TABLET 81 MG PO (21:37)
[2021-10-27] MEDS: SENNOSIDES 1 TAB TABLET 2 TAB PO (21:38)
[2021-10-27] MEDS: LORazepam 0.5 MG TABLET PO (23:21)
[2021-10-28] MEDS: OXYCODONE 5 MG TABLET PO ×3 (03:36→12:31)
[2021-10-28] MEDS: ACETAMINOPHEN 325 MG TABLET 650 MG PO ×2 (03:36→09:41)
[2021-10-28 03:54] VITALS: BP 111/75; PULSE 86; RESP 16; TEMP 36.5; O2SAT 96
[2021-10-28] MEDS: CEFAZOLIN 2 GM in 0.9 % SODIUM CHLORIDE Mini-bag 100 ML IVPB (05:58)
[2021-10-28 07:00] VITALS: PULSE 58; RESP 18
[2021-10-28 07:02] LABS: Hematocrit 42.8 % (37.0-53.0); Hemoglobin* 14.2 gm/dL (13.5-17.5); Mean Corpuscular HGB Conc 33 gm/dL (32-36); Mean Corpuscular Hemoglobin 29 pg (26-34); Mean Corpuscular Volume 88 fL (80-100); Platelet Count* 192 K/uL (140-440); Red Blood Count 4.85 m/uL (4.30-5.90); White Blood Count* 14.37 K/uL (4.50-11.00)
--- NOTE | 2021-10-28 07:06 | PC.NURSE ---
[id number] Pt doing well, ambulated halls around nurses station x1, pain controlled with oral pain meds, rates pain 5/. refuses Ice to R hip. denies N/V.
[2021-10-28 07:19] LABS: Slide Review Reflex No
[2021-10-28 07:21] LABS: Chloride* 105 mmol/L (96-114); Potassium* 3.9 mmol/L (3.6-5.1); Sodium* 136 mmol/L (135-149)
[2021-10-28 07:23] LABS: Creatinine* 0.8 mg/dL (0.5-1.5); Est. Creatinine Clearance* 124.05; Estimated Glomerular Filt Rate 107 ml/min
[2021-10-28 07:24] LABS: Blood Urea Nitrogen* 10 mg/dL (7-30); Calcium* 8.3 mg/dL (8.4-10.6); Carbon Dioxide* 28 mmol/L (20-32); Glucose* 118 mg/dL (60-115)
[2021-10-28 08:00] VITALS: BP 110/72; PULSE 58; RESP 18; TEMP 36.6; O2SAT 96
--- NOTE | 2021-10-28 09:33 | PC.NURSE ---
LATE ENTRY ORDER ~ADMIT TO INPATIENT ON 10/26/21
[2021-10-28] MEDS: ASPIRIN 81 MG TABLET EC PO (09:40)
[2021-10-28] MEDS: SENNOSIDES 1 TAB TABLET 2 TAB PO (09:40)
--- NOTE | 2021-10-28 12:01 | PM.ORPN ---
Subjective Subjective Time Seen by Provider: 07:30 Date Seen: 10/28/21 Principal diagnosis: S/P right hip ORIF Interval history: Carlos is doing well this morning and is resting comfortably in bed. Patient complains of mild right hip pain worse with ambulation. Pain is well managed with current scheduled and PRN oral pain medications and ice. Denies: fever, chills, chest pain, SOB. Patient has not yet been seen by Physical Therapy this morning. PT states he was up and moving yesterday evening, which went well. Able to weightbear without concerns. No complaints at this time. Ortho Exam Narrative Exam Narrative: Incision/Dressing: Dressing appears clean and dry. No drainage present. Mepilex intact. Right hip appears moderately swollen but supple with no obvious erythema, fluctuance or excessive warmth. No ecchymosis or erythematous streaking. Warmth around the wound is appropriate. Ice is being utilized as needed. CMS: Intact distally with 2+ Dorsalis pedis and Posterior Tibial pulses. Calf: Bilateral calves are supple, with no swelling, pain, tenderness, erythema, discoloration or coolness to the touch. Constitutional: Patient is alert and oriented x3. Patient is in no acute distress and converses without labored breathing. Patient is able to make decisions and demonstrates good insight. Patient is pleasant and cooperative. Affect is full range and appropriate for the circumstances. Const Vital Signs, click to edit/add: Vital Signs - 24 hr 10/27/21 12:30 10/27/21 15:00 10/27/21 13:30 Temperature 96.9 F L 97.2 F L Pulse Rate [Right Dorsalis Pedis] 59 L Pulse Rate [Right Pulse Oximeter] 60 70 70 Respiratory Rate 16 16 16 Blood Pressure [Right Arm] 111/76 115/85 Pulse Oximetry 97 97 Oxygen Delivery Method Room Air Room Air Oxygen Flow Rate 0 0 10/27/21 20:00 10/27/21 23:00 10/27/21 23:00 Temperature 98.2 F 97.7 F Pulse Rate [Right Dorsalis Pedis] Pulse Rate [Right Pulse Oximeter] 65 69 69 Respiratory Rate 16 16 16 Blood Pressure [Right Arm] 136/97 H 142/92 H Pulse Oximetry 98 96 Oxygen Delivery Method Room Air Room Air Oxygen Flow Rate 0 0 10/28/21 03:54 10/28/21 08:00 10/28/21 07:00 Temperature 97.7 F 98 F Pulse Rate [Right Dorsalis Pedis] Pulse Rate [Right Pulse Oximeter] 86 58 L 58 L Respiratory Rate 16 18 18 Blood Pressure [Right Arm] 111/75 110/72 Pulse Oximetry 96 96 Oxygen Delivery Method Room Air Room Air Oxygen Flow Rate 0 0 Assessment and Plan Assessment and plan (1) Closed fracture of right hip: Problem details: - Complete 23 hour perioperative antibiotics. - PT/OT consults for education and assistance. - Social consult for discharge planning. - Weight bear as tolerated. - DVT prophylaxis includes: aspirin 81 mg BID x 1 month. Also recommend frequent ambulation and ankle pumps when sedentary. - Anticipate patient will be discharged to home this afternoon if the patient remains medically stable, pain is controlled and is safe with ambulation. - Return to clinic in 1 week for a wound check. Mepilex dressing will be removed at this appointment. Remove sooner if dressing becomes saturated. - Return to clinic in [address] Styles. - Prescribed analgesics as needed. Patient is content with current narcotic medications. Minimize narcotic pain medication use; wean off and discontinue as soon as possible. - Phone Orthopedics with any questions or concerns. Status: Acute (2) Abrasion of elbow, right: Status: Acute (3) Tobacco dependence: Status: Acute
--- NOTE | 2021-10-28 12:29 | PM.IMPN1 ---
Progress Note: A&P Assessment and plan (1) Closed fracture of right hip: Problem details: - Complete 23 hour perioperative antibiotics. - PT/OT consults for education and assistance. - Social consult for discharge planning. - Weight bear as tolerated. - DVT prophylaxis includes: aspirin 81 mg BID x 1 month. Also recommend frequent ambulation and ankle pumps when sedentary. - Anticipate patient will be discharged to home this afternoon if the patient remains medically stable, pain is controlled and is safe with ambulation. - Return to clinic in 1 week for a wound check. Mepilex dressing will be removed at this appointment. Remove sooner if dressing becomes saturated. - Return to clinic in [address] Styles. - Prescribed analgesics as needed. Patient is content with current narcotic medications. Minimize narcotic pain medication use; wean off and discontinue as soon as possible. - Phone Orthopedics with any questions or concerns. Status: Acute Assessment and Plan: 1. S/p Right ORIF on 10/27 under spinal anesthesia, EBL 10cc -pain control, diet, dvt ppx per surgery service 2. hx of tobacco use disorder; cessation counseling prior to DC 3. Hx of alcohol dependence; Time Spent With Patient Total time spent: 30 minutes Subjective Date Seen: 10/28/21 Interval history: patient doing well tolerating diet discharging to home today Exam Narrative: Exam Narrative: Gen: no acute distress HEENT: NCAT EOMI MMM CV: RRR normal s1 s2 Lungs: CTAB Abd: soft, nt,nd Const: Vital Signs, click to edit/add: Vital Signs - 24 hr 10/27/21 12:30 10/27/21 15:00 10/27/21 13:30 Temperature 96.9 F L 97.2 F L Pulse Rate [Right Dorsalis Pedis] 59 L Pulse Rate [Right Pulse Oximeter] 60 70 70 Respiratory Rate 16 16 16 Blood Pressure [Ri ght Arm] 111/76 115/85 Pulse Oximetry 97 97 Oxygen Delivery Me thod Room Air Room Air Oxygen Flow Rate 0 0 10/27/21 20:00 10/27/21 23:00 10/27/21 23:00 Temperature 98.2 F 97.7 F Pulse Rate [Right Dorsalis Pedis] Pulse Rate [Right Pulse Oximeter] 65 69 69 Respiratory Rate 16 16 16 Blood Pressure [Ri ght Arm] 136/97 H 142/92 H Pulse Oximetry 98 96 Oxygen Delivery Me thod Room Air Room Air Oxygen Flow Rate 0 0 10/28/21 03:54 10/28/21 08:00 10/28/21 07:00 Temperature 97.7 F 98 F Pulse Rate [Right Dorsalis Pedis] Pulse Rate [Right Pulse Oximeter] 86 58 L 58 L Respiratory Rate 16 18 18 Blood Pressure [Ri ght Arm] 111/75 110/72 Pulse Oximetry 96 96 Oxygen Delivery Me thod Room Air Room Air Oxygen Flow Rate 0 0 Labs Labs: Laboratory Results - last 24 hr 10/28/21 10/28/21 10/28/21 05:45 05:45 05:45 WBC 14.37 H RBC 4.85 Hgb 14.2 Hct 42.8 MCV 88 MCH 29 MCHC 33 Plt Count 192 Sodium 136 Cancelled Potassium 3.9 Cancelled Chloride 105 Carbon Dioxide 28 BUN 10 Cancelled Creatinine 0.8 Estimated Creat Clear 124.05 Estimated GFR 107 Glucose 118 H Calcium 8.3 L
--- NOTE | 2021-10-28 12:35 | PM.DS1 ---
DS: Providers Provider Date Seen: 10/28/21 Date of admission: 10/26/21 17:40 Primary care physician: Not a Local Provider Admitting Clinician: Samara Sifuentes MD Consults: 10/27/21 08:07 Consult to Occupational Therapy [CONS] Routine Comment: Reason(s) for OT Consult:: Evaluate and Treat Any Restrictions?:: See Comment Comment: evaluate and treat Consult to Physical Therapy [CONS] Routine Comment: Reason(s) for PT Consult:: Evaluate and Treat Any Restrictions?:: See Comment Comment: WBAT RLE Consult to Shelter Advocate [CONS] Routine Comment: Reason for Consult:: Discharge Planning Needs Ortho Consult Recs ssessment and Plan Assessment and plan (1) Closed fracture of right hip: ?Problem details: - Complete 23 hour perioperative antibiotics. - PT/OT consults for education and assistance. - Social consult for discharge planning. - Weight bear as tolerated. - DVT prophylaxis includes: aspirin 81 mg BID x 1 month. Also recommend frequent ambulation and ankle pumps when sedentary. - Anticipate patient will be discharged to home this afternoon if the patient remains medically stable, pain is controlled and is safe with ambulation. - Return to clinic in 1 week for a wound check. Mepilex dressing will be removed at this appointment. Remove sooner if dressing becomes saturated. - Return to clinic in [address] Styles. - Prescribed analgesics as needed. Patient is content with current narcotic medications. Minimize narcotic pain medication use; wean off and discontinue as soon as possible. - Phone Orthopedics with any questions or concerns. ?Status:?Acute (2) Abrasion of elbow, right: ?Status:?Acute (3) Tobacco dependence: ?Status:?Acute Attending Physician on discharge: Damion Story DS: Diagnosis Discharge Diagnosis (1) Closed fracture of right hip: Status: Acute Problem details: - Complete 23 hour perioperative antibiotics. - PT/OT consults for education and assistance. - Social consult for discharge planning. - Weight bear as tolerated. - DVT prophylaxis includes: aspirin 81 mg BID x 1 month. Also recommend frequent ambulation and ankle pumps when sedentary. - Anticipate patient will be discharged to home this afternoon if the patient remains medically stable, pain is controlled and is safe with ambulation. - Return to clinic in 1 week for a wound check. Mepilex dressing will be removed at this appointment. Remove sooner if dressing becomes saturated. - Return to clinic in [address] Styles. - Prescribed analgesics as needed. Patient is content with current narcotic medications. Minimize narcotic pain medication use; wean off and discontinue as soon as possible. - Phone Orthopedics with any questions or concerns. DS: Summary Hospital Course Hospital Course: CLAUDIA 51-year-old with a history of tobacco dependence but otherwise no significant medical history presents after a fall at home.? Patient states that about noon today he was climbing on a stool in his garage and inadvertently fell on his right hip on the concrete floor.? He did not hit his head.? He did not lose consciousness.? He scraped his right elbow as well.? Was not able to stand without assistance.? He did limp once his significant other helped him up.? She went got crutches and he was able to move into the house.? She brought him into the emergency room for further evaluation.? He was not currently drinking or using any drugs. In the ED a nondisplaced right intertrochanteric fracture was noted. No dislocation or additional fractures are seen.? His preop clearance was begun.? Ortho accepted consultation and is planning an ORIF in the morning.? Hospitalist service was contacted to admit. HOSPITAL COURSE Plan 1. S/p Right ORIF on 10/27 under spinal anesthesia, EBL 10cc -pain control, diet, dvt ppx per surgery service 2. hx of tobacco use disorder; cessation counseling prior to DC 3. Hx of alcohol dependence; monitor for s/s of withdrawal Time Spent with Patient Time attestation: Total time spent providing and/or coordinating discharge services: Time spent: Greater than 30 minutes Exam Narrative: Exam Narrative: Gen: no acute distress HEENT: NCAT EOMI MMM CV: RRR normal s1 s2 Lungs: CTAB Abd: soft, nt,nd? Const: Vital Signs, click to edit/add: Vital Signs - 24 hr 10/27/21 15:00 10/27/21 13:30 10/27/21 20:00 Temperature 97.2 F L 98.2 F Pulse Rate [Right Dorsalis Pedis] 59 L Pulse Rate [Right Pulse Oximeter] 70 70 65 Respiratory Rate 16 16 16 Blood Pressure [Ri ght Arm] 115/85 136/97 H Pulse Oximetry 97 98 Oxygen Delivery Me thod Room Air Room Air Oxygen Flow Rate 0 0 10/27/21 23:00 10/27/21 23:00 10/28/21 03:54 Temperature 97.7 F 97.7 F Pulse Rate [Right Dorsalis Pedis] Pulse Rate [Right Pulse Oximeter] 69 69 86 Respiratory Rate 16 16 16 Blood Pressure [Ri ght Arm] 142/92 H 111/75 Pulse Oximetry 96 96 Oxygen Delivery Me thod Room Air Room Air Oxygen Flow Rate 0 0 10/28/21 08:00 10/28/21 07:00 Temperature 98 F Pulse Rate [Right Dorsalis Pedis] Pulse Rate [Right Pulse Oximeter] 58 L 58 L Respiratory Rate 18 18 Blood Pressure [Ri ght Arm] 110/72 Pulse Oximetry 96 Oxygen Delivery Me thod Room Air Oxygen Flow Rate 0 DS: Data Data Completed and Pending Labs on day of discharge: Labs from last 24 hours 10/28/21 10/28/21 10/28/21 05:45 05:45 05:45 WBC 14.37 H RBC 4.85 Hgb 14.2 Hct 42.8 MCV 88 MCH 29 MCHC 33 Plt Count 192 Sodium Cancelled 136 Potassium Cancelled 3.9 Chloride 105 Carbon Dioxide 28 BUN Cancelled 10 Creatinine 0.8 Estimated Creat Clear 124.05 Estimated GFR 107 Glucose 118 H Calcium 8.3 L Discharge Plan Discharge Disposition: Home, Self-Care Date of Admission: 10/26/21 17:40 Attending Provider on Discharge: Damion Story Consulting Providers: Tom Styles Primary Care Provider: Provider,Not a Local Condition: Stable Anticipated Discharge Date/Time: 10/28/21 11:53 Discharge Medications: New aspirin 325 mg Tablet,Delayed Release (Dr/Ec) 81 mg PO BID Qty: 60 0RF sennosides [Senna Lax] 8.6 mg Tablet 17.2 mg PO BID PRN (Reason: constipation) Qty: 30 0RF Rx Instructions: Hold if experiencing loose stools. oxycodone 5 mg Tablet 2.5 - 5 mg PO Q4-6H PRN (Reason: Pain) Qty: 30 0RF Rx Instructions: Minimize use. Wean off and discontinue as soon as possible acetaminophen 500 mg capsule 500 - 1,000 mg PO Q4-6H MDD 4000 mg per day PRNQty: 100 0RF Discharge Orders: Discharge Order (Routine); Ordered 10/28/21 Ordered By: Emily Conte Patient Education: Acetaminophen (By mouth), Aspirin (By mouth), Oxycodone, Rapid Release (By mouth), Senna (By mouth), ORIF of Hip Fracture (DC) Activity Level: Activity as Tolerated Activity Detail: Weightbear as tolerates right lower extremity. DC dressing postop day 3. And okay to get incisions wet. Discharge Diet: Regular Follow Up Appointments: Emily Conte PA-C [Physician Housing And Residence Life Director] - 11/06/21 12:00 pm (Follow up at wound Clinic in [place] on 11/06 with EFRAIN Mi Please Arrive at 11:40am please bring with you a photo ID and Insurance Card ) Provider,Not a Local [Primary Care Provider] - Forms: Work/Release Restrictions, MyHealth Info Instructions
--- NOTE | 2021-10-28 15:06 | PC.NURSE ---
patient educated on d/c plan home with parents. significant other to also provide cares as needed. Discussed pain management, DVT prevention, and safety. pt verbalized understanding. pain meds given around 1230 for discharge and meds sent to pharmacy. Pt discharged at 1445 via w/c. pt has walker at home that he will use for adaptive equipment.
== END 2021-10-28 14:45 | disposition home or self-care (01) | DRG 308 ==
LOC: ED 15:20 → SS 18:46 → MEDSURG 18:48 → SS 10-28 09:50 → MEDSURG 10-28 09:50
PROVIDERS: Hospitalist; Admitting Provider Family Medicine; Emergency Provider Family Medicine; Referring Provider Orthopaedic Surgery; Visit Provider Family Medicine
PROC: 0QS606Z Reposition Right Upper Femur with Intramedullary Internal Fixation Device, Open Approach (ICD-10-PCS; CPT 27245; principal; 2021-10-27 07:00)
DX: S72.141A Displaced intertrochanteric fracture of right femur, initial encounter for closed fracture (principal); W07.XXXA Fall from chair, initial encounter; Y92.009 Unspecified place in unspecified non-institutional (private) residence as the place of occurrence of the external cause; S50.01XA Contusion of right elbow, initial encounter; F17.200 Nicotine dependence, unspecified, uncomplicated; I45.19 Other right bundle-branch block; F10.20 Alcohol dependence, uncomplicated
CPT/HCPCS: 01210; 36415; 64450; 71045; 73502; 76000; 76942; 80048; 80076; 82077; 82977; 84132; 84295; 84520; 85025; 85027; 85610; 85730; 87502; 87634; 87635; 93005; 97110; 97116; 97161; 97165; 97530; 97535; 99140; 99284; 99285; A9270; C1713; J0690; J1100; J1170; J1885; J2250; J2405; J2704; J2795; J3010; J3490; J7120

== ENCOUNTER 2021-12-10 13:45 | Outpatient (RCR) | payer BC, SELFPAY | END 2022-02-25 10:57 | disposition home or self-care (01) | PROVIDERS: Visit Provider Physician Assistant Surgical | DX: Z98.890 Other specified postprocedural states (principal); Z51.89 Encounter for other specified aftercare | CPT/HCPCS: 97110; 97116; 97161; 97530 ==